=== PATIENT | female | born 1935 | race Hispanic/Latino ===

== ENCOUNTER 2025-02-17 17:20 | Inpatient (IN) | payer MEDICARE ==
[~2025-02-17] VITALS: Ht 167.6 cm; Wt 89.4 kg
[2025-02-17 18:20] LABS: BASOPHILS % 0.3 % (0.0-1.0); EOSINOPHILS % 0.2 % (0.0-6.0); LYMPHOCYTES % 7.0 % (18.0-39.1); MONOCYTES % 5.8 % (4.4-11.3); NEUTROPHILS % 86.4 % (38.7-80.0); RED CELL DISTRIBUTION WIDTH 13.6 % (11.7-14.4)
[2025-02-17 18:45] LABS: EST GLOMERULAR FILTRATION RATE 29.0 ML/MIN (>=60)
[2025-02-17 19:44] LABS: CORONAVIRUS COVID-19 AG NEGATIVE (NEGATIVE)
[2025-02-17] MEDS: ASPIRIN 81 MG CHEW TAB PO ONE ×2 (20:05→20:42)
[2025-02-17] MEDS: HYDRALAZINE HCL 20 MG/ML VIAL IV ONE (20:07)
[2025-02-17] MEDS: HYDRALAZINE HCL 20 MG/ML VIAL IV STA ×2 (20:41→22:43)
[2025-02-17] MEDS: NITROGLYCERIN 2% OINT 1 GM PKT TOP STA (21:31)
[2025-02-17] MEDS ORDERED: SODIUM CHLORIDE 0.9% 1000ML 1,000 ML IV SCH (22:00)
[2025-02-17] MEDS ORDERED: NICARDIPINE 20MG/200ML PREMIX 200 ML IV SCH (22:00)
[2025-02-17 23:01] VITALS: PULSE 88; RESP 19; TEMP 99.9
[2025-02-17 23:30] VITALS: BP 170/77; PULSE 87; RESP 17; TEMP 99.9; O2SAT 98
[2025-02-17] MEDS ORDERED: ACETAMINOPHEN 325 MG TAB PO PRN (23:30)
[2025-02-17] MEDS ORDERED: SIMVASTATIN20 MG PO (23:59)
[2025-02-17] MEDS ORDERED: GLUCOSAMINE1000 MG PO (23:59)
[2025-02-17] MEDS ORDERED: AMLODIPINE BESYL5 MG PO (23:59)
[2025-02-17] MEDS ORDERED: LOSARTAN POTAS100 MG PO (23:59)
[2025-02-17] MEDS ORDERED: CITALOPRAM HBR20 MG PO (23:59)
[2025-02-17] MEDS ORDERED: GLIPIZIDE10 MG PO (23:59)
[2025-02-18] VITALS (17 sets, daily range): BP systolic 119–234; BP diastolic 45–208; PULSE 21–99; RESP 16–36; TEMP 98.6–99.9; O2SAT 91–99
[2025-02-18] MEDS ORDERED: DEXTROSE 50% SYRINGE 50 ML IV PRN (00:45)
[2025-02-18] MEDS ORDERED: DOCUSATE SODIUM 100 MG CAP PO PRN (00:45)
[2025-02-18] MEDS ORDERED: SIMETHICONE 80 MG CHEW PO PRN (00:45)
[2025-02-18] MEDS ORDERED: ALBUTEROL/IPRATROPIUM 3 ML NEB NEB PRN (00:45)
[2025-02-18] MEDS ORDERED: BENZONATATE 100 MG CAP PO PRN (00:45)
[2025-02-18] MEDS ORDERED: ACETAMINOPHEN 325 MG TAB PO PRN (00:45)
[2025-02-18 05:15] LABS: BASOPHILS % 0.1 % (0.0-1.0); EOSINOPHILS % 0.1 % (0.0-6.0); LYMPHOCYTES % 9.3 % (18.0-39.1); MONOCYTES % 5.3 % (4.4-11.3); NEUTROPHILS % 84.8 % (38.7-80.0); RED CELL DISTRIBUTION WIDTH 13.6 % (11.7-14.4)
[2025-02-18 05:45] LABS: EST GLOMERULAR FILTRATION RATE 31.0 ML/MIN (>=60)
[2025-02-18] MEDS: HYDRALAZINE HCL 20 MG/ML VIAL IV PRN ×2 (06:35→13:05)
[2025-02-18 06:49] LABS: CHOL/HDL RATIO 3.0 (3.0-3.6); LDL CHOLESTEROL 105.0 MG/DL (60-130)
[2025-02-18] MEDS ORDERED: MIDODRINE 2.5 MG TAB PO SCH (08:00)
[2025-02-18] MEDS ORDERED: LOSARTAN POTASSIUM 100 MG TAB PO SCH (09:00)
[2025-02-18] MEDS: FUROSEMIDE INJ 10 MG/ML 2 ML VIAL IV ONE (09:40)
[2025-02-18] MEDS: PANTOPRAZOLE SOD 40 MG TABEC PO SCH (09:40)
[2025-02-18] MEDS: AMLODIPINE BESYLATE 5 MG TAB PO SCH (09:47)
[2025-02-18] MEDS: LOSARTAN POTASSIUM 100 MG TAB PO SCH (09:47)
[2025-02-18] MEDS: ONDANSETRON HCL INJ 2MG/ML 2ML 2 MG/ML VIAL IV PRN (12:06)
[2025-02-18] MEDS: Morphine 4mg INJECTION 4 MG/ML INJ IV PRN (12:07)
[2025-02-18] MEDS: LIDOCAINE 4% PATCH TP PRN (12:15)
[2025-02-18] MEDS: POTASSIUM CHLORIDE 20 MEQ TAB CR PO ONE (17:22)
[2025-02-18] MEDS: ENOXAPARIN SOD INJ 40 MG/0.4 ML SYR SC SCH (17:22)
[2025-02-18] MEDS: CARVEDILOL 12.5 MG TAB PO SCH (17:23)
[2025-02-18] MEDS: FUROSEMIDE INJ 100 MG in SODIUM CHLORIDE 0.9% 90 ML IV SCH (17:25)
[2025-02-18] MEDS ORDERED: FUROSEMIDE INJ 10 MG/ML 4 ML VIAL IV SCH (21:00)
[2025-02-18] MEDS ORDERED: SIMVASTATIN 20 MG TAB PO SCH (21:00)
[2025-02-19] VITALS (21 sets, daily range): BP systolic 127–178; BP diastolic 33–131; PULSE 60–90; RESP 15–26; TEMP 97.3–99.3; O2SAT 79–100
[2025-02-19] MEDS: ATORVASTATIN 40 MG TAB PO SCH (00:08)
[2025-02-19] MEDS: SACUBITRIL49MG/VALSARTAN51MG 1 EACH TABLET PO SCH (00:08)
[2025-02-19 08:22] LABS: BASOPHILS % 0.2 % (0.0-1.0); EOSINOPHILS % 0.7 % (0.0-6.0); LYMPHOCYTES % 10.1 % (18.0-39.1); MONOCYTES % 7.6 % (4.4-11.3); NEUTROPHILS % 81.1 % (38.7-80.0); RED CELL DISTRIBUTION WIDTH 13.8 % (11.7-14.4)
[2025-02-19 09:19] LABS: EST GLOMERULAR FILTRATION RATE 30.0 ML/MIN (>=60)
[2025-02-19] MEDS: POTASSIUM CHLORIDE 20 MEQ TAB CR PO PRN (13:35)
[2025-02-19] MEDS: POTASSIUM CHLORIDE 20 MEQ TAB CR PO STA (17:47)
[2025-02-19] MEDS: CARVEDILOL 12.5 MG TAB PO SCH (17:48)
[2025-02-19] MEDS: HYDROCODONE/APAP 5MG-325MG TAB PO PRN (18:07)
[2025-02-20] VITALS (16 sets, daily range): BP systolic 100–156; BP diastolic 44–83; PULSE 58–83; RESP 14–20; TEMP 97.9–99.2; O2SAT 78–100
[2025-02-20] MEDS: POTASSIUM CHLORIDE 20 MEQ TAB CR PO ONE (10:28)
[2025-02-20 14:08] LABS: EST GLOMERULAR FILTRATION RATE 23.0 ML/MIN (>=60)
[2025-02-20] MEDS ORDERED: HYDROCODONE/APAP 5MG-325MG TAB PO PRN (14:15)
[2025-02-20] MEDS: DICLOFENAC SOD 1% GEL 100 GM TUBE TP SCH (15:21)
[2025-02-21] VITALS (14 sets, daily range): BP systolic 118–173; BP diastolic 46–77; PULSE 56–72; RESP 16–34; TEMP 97–98; O2SAT 94–98
[2025-02-21 06:01] LABS: EST GLOMERULAR FILTRATION RATE 23.0 ML/MIN (>=60)
[2025-02-21 06:16] LABS: BASOPHILS % 2.0 % (0.0-1.0); EOSINOPHILS % 2.3 % (0.0-6.0); LYMPHOCYTES % 19.2 % (18.0-39.1); MONOCYTES % 8.1 % (4.4-11.3); NEUTROPHILS % 69.8 % (38.7-80.0); RED CELL DISTRIBUTION WIDTH 13.5 % (11.7-14.4)
[2025-02-21] MEDS: FUROSEMIDE INJ 10 MG/ML 4 ML VIAL IV SCH (09:11)
[2025-02-21] MEDS: DIPHENHYDRAMINE HCL 25 MG CAP PO PRN (09:13)
[2025-02-21 13:35] LABS: LEUKOCYTE ESTERASE ,URINE NEGATIVE (NEGATIVE); PROTEIN,URINE DIPSTICK >=300 (NEGATIVE); URINE UROBILINOGEN 0.2 mg/dL (0.2 - 1)
[2025-02-21 13:57] LABS: WBC,URINE (MAN) 0-5 /HPF (0-5)
[2025-02-21 15:40] LABS: EST GLOMERULAR FILTRATION RATE 25.0 ML/MIN (>=60)
[2025-02-21] MEDS ORDERED: DEXTROSE 50% SYRINGE 50 ML IV PRN (17:30)
[2025-02-21] MEDS: PREDNISONE 10 MG TAB PO ONE (18:00)
[2025-02-21] MEDS: INSULIN LISPRO 100 UNIT/1 ML 3ML VIAL SQ SCH (21:00)
[2025-02-22] VITALS (10 sets, daily range): BP systolic 146–196; BP diastolic 49–70; PULSE 60–66; RESP 16–20; TEMP 97.6–98.3; O2SAT 93–100
[2025-02-22] MEDS: PREDNISONE 10 MG TAB PO SCH (16:23)
[2025-02-23] VITALS (8 sets, daily range): BP systolic 149–185; BP diastolic 51–72; PULSE 64–75; RESP 18; TEMP 97.4–98.1; O2SAT 97–100
[2025-02-23 07:41] LABS: EST GLOMERULAR FILTRATION RATE 30.0 ML/MIN (>=60)
== END 2025-02-23 17:13 | disposition home health service (06) | DRG 291 ==
LOC: ER 17:23 → INTOOBSV 21:49 → ERHOLD 21:49 → OBSVTOIN 23:30 → ICU 23:35 → MED/SURG 02-21 15:01
PROVIDERS: ADMIT Internal Medicine; ATTEND Internal Medicine
DX: I13.0 Hypertensive heart and chronic kidney disease with heart failure and stage 1 through stage 4 chronic kidney disease, or unspecified chronic kidney disease (principal); I50.33 Acute on chronic diastolic (congestive) heart failure; N17.9 Acute kidney failure, unspecified; I16.0 Hypertensive urgency; E11.22 Type 2 diabetes mellitus with diabetic chronic kidney disease; N18.30 Chronic kidney disease, stage 3 unspecified; Z79.84 Long term (current) use of oral hypoglycemic drugs; M17.11 Unilateral primary osteoarthritis, right knee; D64.9 Anemia, unspecified; E78.5 Hyperlipidemia, unspecified; Z11.52 Encounter for screening for COVID-19; Z71.81 Spiritual or religious counseling; Z79.899 Other long term (current) drug therapy
CPT/HCPCS: 36415; 71045; 80048; 80053; 80061; 81001; 82550; 82948; 83036; 83690; 83735; 83880; 84443; 84484; 85025; 93005; 93306; 93970; 94799; 99252; 99284; J0360; J1650; J1938; J1940; J2270; J2405; J2470; J7050; J7512